=== PATIENT | male | born 1970 | race Caucasian/White ===

== ENCOUNTER 2018-12-12 14:41 | Emergency (ER) | payer MEDICAID ==
[~2018-12-12] VITALS: Ht 185.4 cm; Wt 77.6 kg
[2018-12-12 14:45] VITALS: Ht 185.4 cm; Wt 77.6 kg
[2018-12-12 17:39] VITALS: BP 122/78
== END 2018-12-12 17:58 | disposition home or self-care (01) ==
LOC: ED 14:41
DX: K04.7 Periapical abscess without sinus (principal); I10 Essential (primary) hypertension; E11.9 Type 2 diabetes mellitus without complications
CPT/HCPCS: J2001; J3490

== ENCOUNTER 2019-01-13 15:37 | Emergency (ER) | payer MEDICAID ==
[~2019-01-13] VITALS: Ht 182.9 cm; Wt 75.7 kg
[2019-01-13 15:51] VITALS: Ht 182.9 cm; Wt 75.7 kg
[2019-01-13 18:22] VITALS: BP 144/73
== END 2019-01-13 18:22 | disposition home or self-care (01) ==
LOC: ED 15:37
DX: R20.2 Paresthesia of skin (principal); R20.0 Anesthesia of skin; E11.9 Type 2 diabetes mellitus without complications; I10 Essential (primary) hypertension; E78.00 Pure hypercholesterolemia, unspecified